=== PATIENT | female | born 1970 | race Caucasian/White ===

== ENCOUNTER 2025-07-21 07:03 | Day surgery (SDC) | payer OTHER ==
[~2025-07-21 07:03] MED LIST: Sodium Chloride 0.9% 10 ML Syringe FLUSH PRN
[2025-07-21] MEDS ORDERED: Propofol 200 MG/20 ML SDV IV ONE (07:04)
[2025-07-21] MEDS: Lactated Ringers 1,000 ML IV SCH (07:40)
== END 2025-07-21 09:37 | disposition home or self-care (01) ==
LOC: FB.SDS 07:03
PROVIDERS: ATTEND Surgery
DX: Z12.11 Encounter for screening for malignant neoplasm of colon (principal); Q43.8 Other specified congenital malformations of intestine; Z88.2 Allergy status to sulfonamides
CPT/HCPCS: 45378; A9270; J2003; J2704; J7120; 00811